=== PATIENT | female | born 1970 | race Caucasian/White ===

== ENCOUNTER 2020-04-01 12:58 | Emergency (ER) | payer MEDICAID ==
[~2020-04-01] VITALS: Ht 165.1 cm; Wt 85.3 kg
--- NOTE | 2020-04-01 13:30 | NUR ---
"blurring of vision," seeing flashing lights x yesterday at 1800 pt states flashing light already resolved. Patient a/ox4, breathing even and unlabored, no sob noted, needs attended. Kept comfortable.
[2020-04-01] MEDS ORDERED: ACETAMINOPHEN 325 MG TABLET ONE (14:50)
[2020-04-01] MEDS ORDERED: ACETAMINOPHEN 325 MG TABLET PO ONE (15:00)
--- NOTE | 2020-04-01 15:10 | NUR ---
VISUAL ACUITY DONE.
--- NOTE | 2020-04-01 16:03 | NUR ---
URINE COLLECTED AND SENT TO LAB
--- NOTE | 2020-04-01 16:33 | NUR ---
Patient a/ox4, breathing even and unlabored, no sob noted. Patient discharged to home in stable condition. Written and verbal after care instructions given. Patient verbalizes understanding of instruction.
[2020-04-01 16:36] VITALS: BP 119/69
== END 2020-04-01 16:37 | disposition home or self-care (01) ==
LOC: ER 13:05
DX: H53.8 Other visual disturbances (principal); G89.29 Other chronic pain; R10.2 Pelvic and perineal pain; Z88.0 Allergy status to penicillin; Z88.1 Allergy status to other antibiotic agents
CPT/HCPCS: 36415